=== PATIENT | female | born 1975 | race Caucasian/White ===

== ENCOUNTER 2017-04-14 16:03 | Emergency (ER) | payer BC ==
--- NOTE | 2017-04-14 16:21 | ED PDOC ---
HPI: Psych/Substance Abuse Time Seen by Provider: 04/14/17 16:11 Chief Complaint (Nursing): Altered Mental Status Chief Complaint (Provider): Bizarre behavior History Per: Patient Additional Complaint(s): Pt BIBA for bizarre behavior. Pt admits to smoking marijuana today. No complaints. Past Medical History Reviewed: Nursing Documentation, Vital Signs Vital Signs: Last Vital Signs Temp 98.0 F 04/14/17 16:05 Pulse 105 H 04/14/17 16:05 Resp 16 04/14/17 16:05 BP 138/86 04/14/17 16:05 Pulse Ox 100 04/14/17 16:05 - Medical History PMH: No Chronic Diseases - Social History Current smoker - smoking cessation education provided: Yes Drugs: Cannabis - Allergies Allergies/Adverse Reactions: Allergies Allergy/AdvReac Type Severity Reaction Status Date / Time No Known Allergies Allergy Verified 04/14/17 16:04 Review of Systems ROS Statement: Except As Marked, All Systems Reviewed And Found Negative Physical Exam - Reviewed Nursing Documentation Reviewed: Yes Vital Signs Reviewed: Yes - Physical Exam Appears: Positive for: Well, No Acute Distress Head Exam: Positive for: ATRAUMATIC, NORMAL INSPECTION Skin: Positive for: Normal Color, Warm, Dry Eye Exam: Positive for: Normal appearance, EOMI, PERRL Cardiovascular/Chest: Positive for: Regular Rate, Rhythm Respiratory: Positive for: Normal Breath Sounds Extremity: Positive for: Normal ROM Neurologic/Psych: Positive for: Alert, 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 Negative for: Motor/Sensory Deficits, Aphasia, Facial Droop - Laboratory Results Result Diagrams: 04/14/17 17:11 04/14/17 17:11 - ECG O2 Sat by Pulse Oximetry: 100 Medical Decision Making Medical Decision Makin yo female with bizarre behavior s/p marijuana use. - labs 23:50 Pt sleeping, arousable to verbal stimuli, AAOX3, admits to smoking marijuana today (not the first time), also smoke cigarettes. Denies posterior WANG, neck stiffness, visual changes. States she take medications for thyroid. Was diagnosed with Lyme disease in 2008, finished course of treatment including antibiotics at that time. Disposition - Disposition Forms: [employer] ([place] Citizen)
[2017-04-14 17:22] LABS: BASO # 0.1 K/uL (0.0-0.2); BASO % 0.7 % (0.0-2.0); EOS # 0.1 K/uL (0.0-0.7); EOS % 0.5 % (0.0-4.0); HEMOGLOBIN 13.2 g/dL (12.0-16.0); LYMPH # 1.4 K/uL (1.0-4.3); LYMPH % 9.5 % (20.0-40.0); MEAN CELL VOLUME 91.8 fl (81.0-99.0); MEAN CORPUSCULAR HEMOGLOBIN 30.5 pg (27.0-31.0); MEAN CORPUSCULAR HGB CONC 33.2 g/dL (33.0-37.0); MEAN PLATELET VOLUME 7.1 fl (7.2-11.7); NEUT # 11.8 K/uL (1.8-7.0); NEUT % 82.3 % (50.0-75.0); PLATELET COUNT 332 K/uL (130-400); RBC 4.34 Mil/uL (3.80-5.20); RED CELL DISTRIBUTION WIDTH 12.9 % (11.5-14.5); WHITE BLOOD COUNT 14.3 K/uL (4.8-10.8)
[2017-04-14 17:26] LABS: ACETAMINOPHEN < 10.0 ug/ml (10.0-30.0); SALICYLATE < 1.0 mg/dl
[2017-04-14 17:29] LABS: ALB/GLOB RATIO 1.4 (1.0-2.1); ALBUMIN 4.1 g/dL (3.5-5.0); ALT/SGPT 77 U/L (9-52); AST/SGOT 66 U/L (14-36); BLOOD UREA NITROGEN 10 mg/dl (7-17); GFR AFRICAN-AMERICAN > 60; GFR NON-AFRICAN AMERICAN > 60
[2017-04-14 19:52] LABS: BANDS 3 % (0-2); BASOPHIL 1 % (0-2); EOSINOPHIL 1 % (0-7); LYMPHOCYTE 10 % (20-50); MONOCYTE 8 % (0-10); NEUTROPHIL 77 % (42-75); PLATELET ESTIMATE NORMAL (NORMAL); TOTAL CELLS COUNTED 100
[2017-04-14 19:53] LABS: LARGE PLATELETS PRESENT
--- NOTE | 2017-04-15 00:21 | ED PDOC ---
- Laboratory Results Result Diagrams: 04/15/17 02:02 04/14/17 17:11 - ECG O2 Sat by Pulse Oximetry: 100 (RA) Pulse Ox Interpretation: Normal Medical Decision Making Medical Decision Making: Time: 00:00 Patient was endorsed to me by Dr. Lauren David at this time, pending medical clearance. Time: 00:16 Chest X-Ray: FINDINGS: Lungs: Unremarkable. No consolidation. Pleural space: Unremarkable. No pneumothorax. Heart: Unremarkable. No cardiomegaly. Mediastinum: Unremarkable. Bones/joints: Unremarkable. IMPRESSION: Normal chest x-ray. Time: 02:40 CT Head FINDINGS: Brain: Unremarkable. No hemorrhage. No significant white matter disease. No edema. Ventricles: Unremarkable. No ventriculomegaly. Bones/joints: Unremarkable. No acute fracture. Soft tissues: There is a likely sebaceous cyst of the high right parietal scalp. Sinuses: Unremarkable as visualized. No acute sinusitis. Mastoid air cells: Unremarkable as visualized. No mastoid effusion. IMPRESSION: No acute intracranial pathology. Second CBC shows down-trending WBC count. Head CT and CXR are negative. Toxicology positive for cannabinoids. Patient is medically cleared for psychiatric admission. 0700 Patient signed out to Dr. Casas pending [facility] evaluation. Scribe Attestation: Documented by Mee Walters, acting as a scribe for Sebas Maher MD Provider Scribe Attestation: All medical record entries made by the Scribe were at my direction and personally dictated by me. I have reviewed the chart and agree that the record accurately reflects my personal performance of the history, physical exam, medical decision making, and the department course for this patient. I have also personally directed, reviewed, and agree with the discharge instructions and disposition. Disposition - Clinical Impression Clinical Impression: Psychosis - POA Present On Arrival: None - Disposition Disposition: Transfer of Care Disposition Time: 07:00 Condition: STABLE Forms: [facility] (Slovak) Patient Signed Over To: Deni Casas Handoff Comments: pending eval by [facility]
[2017-04-15 00:41] LABS: BARBITURATES, UR NEGATIVE (NEGATIVE); BENZODIAZEPINES, UR NEGATIVE (NEGATIVE); OPIATES, UR NEGATIVE (NEGATIVE); PHENCYCLIDINE, UR NEGATIVE (NEGATIVE)
[2017-04-15] MEDS: Sodium Chloride 0.9% 1,000 ML IV STA (00:55)
[2017-04-15] MEDS: Potassium Chloride 20 mEq ER Tab PO STA (00:57)
[2017-04-15] MEDS ORDERED: Potassium Chloride 20 mEq ER Tab PO ONE (00:57)
[2017-04-15 02:19] LABS: BASO % 0.2 % (0.0-2.0); EOS % 0.2 % (0.0-4.0); HEMOGLOBIN 12.6 g/dL (12.0-16.0); LYMPH # 1.1 K/uL (1.0-4.3); LYMPH % 8.4 % (20.0-40.0); MEAN CELL VOLUME 91.6 fl (81.0-99.0); MEAN CORPUSCULAR HEMOGLOBIN 30.3 pg (27.0-31.0); MEAN CORPUSCULAR HGB CONC 33.1 g/dL (33.0-37.0); MONO # 1.1 K/uL (0.0-0.8); MONO % 8.6 % (0.0-10.0); NEUT # 10.4 K/uL (1.8-7.0); NEUT % 82.6 % (50.0-75.0); RBC 4.16 Mil/uL (3.80-5.20); RED CELL DISTRIBUTION WIDTH 12.8 % (11.5-14.5); WHITE BLOOD COUNT 12.6 K/uL (4.8-10.8)
[2017-04-15 03:28] LABS: SQUAMOUS EPITHIAL 1 /hpf (0-5); URINE BACTERIA OCC (<OCC); URINE BILIRUBIN NEGATIVE (NEGATIVE); URINE BLOOD SMALL (NEGATIVE); URINE CLARITY SLIGHTY-CLOUDY (Clear); URINE COLOR STRAW (YELLOW); URINE GLUCOSE (UA) NEG (Normal); URINE LEUKOCYTE ESTERASE NEG Leu/uL (Negative); URINE NITRATE NEGATIVE (NEGATIVE); URINE PROTEIN NEGATIVE (NEGATIVE); URINE UROBILINOGEN 0.2-1.0 mg/dL (0.2-1.0)
[2017-04-15 06:49] VITALS: BP 101/55; PULSE 90; RESP 18; TEMP 98.4; O2SAT 99
--- NOTE | 2017-04-15 08:52 | CT ---
PROCEDURE: CT HEAD WITHOUT CONTRAST. HISTORY: Bizarre behavior COMPARISON: None available. TECHNIQUE: Axial computed tomography images were obtained through the head/brain without intravenous contrast. Radiation dose: Total exam DLP = 1133 mGy-cm. This CT exam was performed using one or more of the following dose reduction techniques: Automated exposure control, adjustment of the mA and/or kV according to patient size, and/or use of iterative reconstruction technique. FINDINGS: HEMORRHAGE: No intracranial hemorrhage. BRAIN: No mass effect or edema. No atrophy or chronic microvascular ischemic changes. VENTRICLES: Unremarkable. No hydrocephalus. CALVARIUM: Unremarkable. PARANASAL SINUSES: Unremarkable as visualized. No significant inflammatory changes. MASTOID AIR CELLS: Unremarkable as visualized. No inflammatory changes. OTHER FINDINGS: Leftward nasal septal spurring and high right parietal scalp benign-appearing 12 mm lesion -compatible with a sebaceous cyst subjacent calvarium intact IMPRESSION: No intracranial hemorrhage or mass effect Other incidental findings as above Comments: Preliminary report per Vrad compatible with this report.
--- NOTE | 2017-04-15 13:40 | RAD ---
HISTORY: Medical clearance COMPARISON: PE FINDINGS: LUNGS: No active pulmonary disease. PLEURA: No significant pleural effusion identified, no pneumothorax apparent. CARDIOVASCULAR: No radiographic findings to suggest acute or significant cardiovascular disease. OSSEOUS STRUCTURES: No significant abnormalities. VISUALIZED UPPER ABDOMEN: Normal. OTHER FINDINGS: None. IMPRESSION: No active disease.
--- NOTE | 2017-04-16 09:43 | CARD ---
APPROVED REPORT EKG Measurement Heart [id number] RI [id number] <Conclusion> Normal sinus rhythm Biatrial enlargement ST & T wave abnormality, consider anterior ischemia Abnormal ECG
== END 2017-04-15 07:30 | disposition home or self-care (01) ==
LOC: H.ER 16:03
DX: R41.82 Altered mental status, unspecified (principal); F12.90 Cannabis use, unspecified, uncomplicated; F29 Unspecified psychosis not due to a substance or known physiological condition; I51.7 Cardiomegaly
CPT/HCPCS: 70450; 71045; 80053; 81003; 81025; 84443; 84703; 85025; 87804; 93005; 96372; 99285; G0480; J1630; J2060; J7040

== ENCOUNTER 2017-04-16 16:33 | Emergency (ER) | payer BC ==
[2017-04-16 17:59] VITALS: RESP 16
--- NOTE | 2017-04-16 20:29 | ED PDOC ---
HPI: Psych/Substance Abuse Time Seen by Provider: 04/16/17 18:44 Chief Complaint (Nursing): Altered Mental Status Chief Complaint (Provider): Altered Mental Status History Per: Family (mother) History/Exam Limitations: no limitations Onset/Duration Of Symptoms: Days (x6) Additional History Per: Patient, Prior Records Additional Complaint(s): Margie Grijalva is a 41 y/o female brought to the ER for psychiatric evaluation. On Thursday04/10/17, patients mother noticed patient was acting bizarre and was answering questions inappropriately at times, but she did not think much of it. Thursday04/14/17, mother was called by patients neighbors as patient was acting bizarre and had to be stopped from running down the street. Patient was seen in ED and eventually discharged after negative workup including blood work, CT, and crisis evaluation. 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 Per mother, patient has no previous psychiatric illness. Patient admits to smoking marijuana. Currently patient is complaining right hip pain but is uncertain as to how it started. Patient states she does not remember any of the events described, and states she does not want to be here. PMD: Provider [facility] Past Medical History Reviewed: Historical Data, Nursing Documentation, Vital Signs Vital Signs: Last Vital Signs Temp 97.0 F L 04/16/17 17:59 Pulse 85 04/16/17 17:59 Resp 16 04/16/17 17:59 BP 129/69 04/16/17 17:59 Pulse Ox 100 04/16/17 17:59 - Medical History PMH: Anxiety, Bipolar Disorder Denies: Diabetes, Hepatitis, HIV, HTN, Seizures, Sexually Transmitted Disease - Family History Family History: States: Unknown Family Hx - Social History Drugs: Cannabis - Allergies Allergies/Adverse Reactions: Allergies Allergy/AdvReac Type Severity Reaction Status Date / Time No Known Allergies Allergy Verified 04/14/17 16:04 Review of Systems ROS Statement: Except As Marked, All Systems Reviewed And Found Negative Musculoskeletal: Positive for: Other (right hip pain) Psych: Positive for: Other (bizarre behavior) Physical Exam - Reviewed Nursing Documentation Reviewed: Yes Vital Signs Reviewed: Yes - Physical Exam Appears: Positive for: Non-toxic, No Acute Distress Head Exam: Positive for: ATRAUMATIC, NORMOCEPHALIC Skin: Positive for: Normal Color, Warm, Dry Eye Exam: Positive for: EOMI, Normal appearance, PERRL Neck: Positive for: Normal, Painless ROM Cardiovascular/Chest: Positive for: Regular Rate, Rhythm. Negative for: Murmur Respiratory: Positive for: Normal Breath Sounds. Negative for: Accessory Muscle Use, Respiratory Distress Gastrointestinal/Abdominal: Positive for: Normal Exam, Soft. Negative for: Tenderness Extremity: Positive for: Normal ROM. Negative for: Pedal Edema, Deformity Neurologic/Psych: Positive for: Alert, Oriented, Mood/Affect (Answers questions appropriately but seems preoccupied, and had 1 episode of talking to herself during the examination) - Laboratory Results Result Diagrams: 04/16/17 20:41 04/16/17 20:41 - ECG ECG: Positive for: Interpreted By Me ECG Rhythm: Positive for: Sinus Rhythm. Negative for: ST/T Changes Rate: 77 O2 Sat by Pulse Oximetry: 100 (RA) Pulse Ox Interpretation: Normal - Radiology X-Ray: Interpreted by Me (CXR, R hip x-ray) X-Ray Interpretation: No Acute Disease - Progress ED Course And Treament: Pt. evaluated by Eyad carbajal, who spoke with Dr. Forte and requests that pt. be screened. 2320 Pt. requesting anxiety meds as she is feeling very anxious. Ativan 2mg IM ordered. Medical Decision Making Medical Decision Making: Time: 19:33 Initial Plan: --Alcohol serum --Urine drug screen --CMP --CBC w/ differential --Urine test --Urinalysis --EKG --Chest X-Ray --X-Ray Right Hip --Placed on 1:1 observation --Pending crisis evaluation Scribe Attestation: Documented by Mee Walters, acting as a scribe for Obed Smith PA-C Provider Scribe Attestation: All medical record entries made by the Scribe were at my direction and personally dictated by me. I have reviewed the chart and agree that the record accurately reflects my personal performance of the history, physical exam, medical decision making, and the department course for this patient. I have also personally directed, reviewed, and agree with the discharge instructions and disposition. Disposition - Clinical Impression Clinical Impression: Psychotic episode - Patient ED Disposition Is Patient to be Admitted: Transfer of Care (Signed out to Viktor FOURNIER pending [facility] screen) - Disposition Disposition: Routine/Home Disposition Time: 00:00 Condition: STABLE Forms: [employer] [facility] (Azeri)
[2017-04-16 20:53] LABS: BASO # 0.1 K/uL (0.0-0.2); BASO % 0.5 % (0.0-2.0); EOS # 0.1 K/uL (0.0-0.7); EOS % 1.1 % (0.0-4.0); HEMOGLOBIN 12.9 g/dL (12.0-16.0); LYMPH # 2.4 K/uL (1.0-4.3); LYMPH % 19.7 % (20.0-40.0); MEAN CELL VOLUME 92.2 fl (81.0-99.0); MEAN CORPUSCULAR HEMOGLOBIN 30.4 pg (27.0-31.0); MONO # 1.1 K/uL (0.0-0.8); MONO % 8.8 % (0.0-10.0); NEUT # 8.5 K/uL (1.8-7.0); NEUT % 69.9 % (50.0-75.0); RBC 4.24 Mil/uL (3.80-5.20); RED CELL DISTRIBUTION WIDTH 12.9 % (11.5-14.5); WHITE BLOOD COUNT 12.1 K/uL (4.8-10.8)
[2017-04-16 21:13] LABS: URINE BILIRUBIN NEGATIVE (NEGATIVE); URINE BLOOD NEGATIVE (NEGATIVE); URINE CLARITY CLEAR (Clear); URINE COLOR COLORLESS (YELLOW); URINE GLUCOSE (UA) NEG (Normal); URINE LEUKOCYTE ESTERASE NEG Leu/uL (Negative); URINE NITRATE NEGATIVE (NEGATIVE); URINE PROTEIN NEGATIVE (NEGATIVE); URINE UROBILINOGEN 0.2-1.0 mg/dL (0.2-1.0)
[2017-04-16 21:23] LABS: BARBITURATES, UR NEGATIVE (NEGATIVE); BENZODIAZEPINES, UR NEGATIVE (NEGATIVE); OPIATES, UR NEGATIVE (NEGATIVE); PHENCYCLIDINE, UR NEGATIVE (NEGATIVE)
[2017-04-16 21:24] LABS: ALB/GLOB RATIO 1.6 (1.0-2.1); ALBUMIN 3.9 g/dL (3.5-5.0); ALT/SGPT 96 U/L (9-52); AST/SGOT 60 U/L (14-36); BLOOD UREA NITROGEN 8 mg/dl (7-17); GFR AFRICAN-AMERICAN > 60; GFR NON-AFRICAN AMERICAN > 60
--- NOTE | 2017-04-17 02:45 | ED PDOC ---
- Laboratory Results Result Diagrams: 04/16/17 20:41 04/16/17 20:41 - ECG O2 Sat by Pulse Oximetry: 100 (RA) - Progress ED Course And Treament: pending [facility] Disposition - Clinical Impression Clinical Impression: Psychotic episode - POA Present On Arrival: None - Disposition Disposition: Transfer of Care Disposition Time: 06:03 Condition: STABLE Forms: [facility] (Spanish) Patient Signed Over To: Sebas Maher Handoff Comments: PENDING [facility] EVAL
--- NOTE | 2017-04-17 06:06 | ED PDOC ---
- Laboratory Results Result Diagrams: 04/16/17 20:41 04/16/17 20:41 - ECG O2 Sat by Pulse Oximetry: 100 (RA) Pulse Ox Interpretation: Normal Medical Decision Making Medical Decision Making: Time: 6:00 --Patient signed out to me by Analilia Hoang PA-C pending [facility] screening. Scribe Attestation: Documented by Riley Leong, acting as a scribe for Dr. Sebas Maher MD Provider Scribe Attestation: All medical record entries made by the Scribe were at my direction and personally dictated by me. I have reviewed the chart and agree that the record accurately reflects my personal performance of the history, physical exam, medical decision making, and the department course for this patient. I have also personally directed, reviewed, and agree with the discharge instructions and disposition. Disposition - Clinical Impression Clinical Impression: Psychotic episode - Disposition Condition: STABLE Forms: [employer] (Norwegian)
--- NOTE | 2017-04-17 07:28 | ED PDOC ---
- Laboratory Results Result Diagrams: 04/16/17 20:41 04/16/17 20:41 - ECG O2 Sat by Pulse Oximetry: 100 (RA) Pulse Ox Interpretation: Normal Medical Decision Making Medical Decision Making: Receiving sign out: Patient signed out to me by Dr. Maher at 0720 pending [facility] screen. Parents are at bedside as well. [facility] screen for involuntary commitment completed and patient does not meet criteria for involuntary commitment Pt discharged with parents, encouraged to avoid THC. Scribe Attestation: Documented by Elizabeth Haider acting as a scribe for Eduardo Kothari DO. Provider Attestation: All medical record entries made by the Scribe were at my direction and personally dictated by me. I have reviewed the chart and agree that the record accurately reflects my personal performance of the history, physical exam, medical decision making, and the department course for this patient. I have also personally directed, reviewed, and agree with the discharge instructions and disposition. Disposition Counseled Patient/Family Regarding: Studies Performed, Diagnosis, Need For Followup, Rx Given - Clinical Impression Clinical Impression: Psychotic episode, Cannabis abuse - POA Present On Arrival: None - Disposition Referrals: [facility] [Outside] Disposition: Routine/Home Disposition Time: 12:55 Condition: STABLE Additional Instructions: Return to ER for any concern for self. Avoid drugs and alcohol. Instructions: Brief Psychotic Disorder (ED), Cannabis Abuse (ED) Forms: [employer] [facility] (Filipino) Progress Note - Review of Symptoms Events since last encounter: Time: 1250 Patient seen and evaluated by [facility] screener and patient does not meet criteria for admission. Per Dr. Charlton, patient stable for discharge home and is to follow up at mental health clinic.
[2017-04-17 08:07] VITALS: BP 110/72; PULSE 69; TEMP 98.3
--- NOTE | 2017-04-17 10:54 | RAD ---
PROCEDURE: CHEST RADIOGRAPH, 1 VIEW HISTORY: trauma COMPARISON: Comparison chest dated 04/14/2017 FINDINGS: LUNGS: Clear. PLEURA: No pneumothorax or pleural fluid seen. CARDIOVASCULAR: Normal. OSSEOUS STRUCTURES: No significant abnormalities. VISUALIZED UPPER ABDOMEN: Normal. OTHER FINDINGS: None. IMPRESSION: No active disease.
--- NOTE | 2017-04-17 11:19 | CARD ---
APPROVED REPORT EKG Measurement Heart [id number] IA [id number] <Conclusion> Normal sinus rhythm Possible Left atrial enlargement Borderline ECG
--- NOTE | 2017-04-17 11:46 | CP.PCM.CON ---
Past Patient History - Past Social History Drugs: Cannabis - CARDIAC Hx Hypertension: No - PULMONARY Hx Tuberculosis: No - NEUROLOGICAL Hx Seizures: No - HEMATOLOGICAL/ONCOLOGICAL Hx Human Immunodeficiency Virus (HIV): No - GENITOURINARY/GYNECOLOGICAL Hx Sexually Transmitted Disorders: No - PSYCHIATRIC Hx Anxiety: Yes Hx Bipolar Disorder: Yes Meds Allergies/Adverse Reactions: Allergies Allergy/AdvReac Type Severity Reaction Status Date / Time No Known Allergies Allergy Verified 04/14/17 16:04 Results - Vital Signs Recent Vital Signs: Last Vital Signs Temp 98.3 F 04/17/17 08:06 Pulse 69 04/17/17 08:06 Resp 16 04/17/17 08:06 BP 110/72 04/17/17 08:06 Pulse Ox 99 04/17/17 08:06 - Labs Result Diagrams: 04/16/17 20:41 04/16/17 20:41 Labs: Laboratory Results - last 24 hr 04/16/17 04/16/17 04/16/17 20:10 20:10 20:41 WBC 12.1 H RBC 4.24 Hgb 12.9 Hct 39.1 MCV 92.2 MCH 30.4 MCHC 33.0 RDW 12.9 Plt Count 337 MPV 7.0 L Neut % (Auto) 69.9 Lymph % (Auto) 19.7 L Navarro % (Auto) 8.8 Eos % (Auto) 1.1 Baso % (Auto) 0.5 Neut # (Auto) 8.5 H Lymph # (Auto) 2.4 Navarro # (Auto) 1.1 H Eos # (Auto) 0.1 Baso # (Auto) 0.1 Sodium Potassium Chloride Carbon Dioxide Anion Gap BUN Creatinine Est GFR ( Amer) Est GFR (Non-Af Amer) Random Glucose Calcium Total Bilirubin AST ALT Alkaline Phosphatase Total Protein Albumin Globulin Albumin/Globulin Ratio Urine Color Colorless Urine Clarity Clear Urine pH 7.0 Ur Specific Itmann < 1.005 Urine Protein Negative Urine Glucose (UA) Neg Urine Ketones Negative Urine Blood Negative Urine Nitrate Negative Urine Bilirubin Negative Urine Urobilinogen 0.2-1.0 Ur Leukocyte Esterase Neg Urine Microscopic WBC < 1 Urine Opiates Screen Negative Urine Methadone Screen Negative Ur Barbiturates Screen Negative Ur Phencyclidine Scrn Negative Ur Amphetamines Screen Negative U Benzodiazepines Scrn Negative U Oth Cocaine Metabols Negative U Cannabinoids Screen Positive H Alcohol, Quantitative 04/16/17 20:41 WBC RBC Hgb Hct MCV MCH MCHC RDW Plt Count MPV Neut % (Auto) Lymph % (Auto) Navarro % (Auto) Eos % (Auto) Baso % (Auto) Neut # (Auto) Lymph # (Auto) Navarro # (Auto) Eos # (Auto) Baso # (Auto) Sodium 142 Potassium 3.6 Chloride 105 Carbon Dioxide 25 Anion Gap 16 BUN 8 Creatinine 0.6 L Est GFR ( Amer) > 60 Est GFR (Non-Af Amer) > 60 Random Glucose 104 Calcium 9.0 Total Bilirubin 0.5 AST 60 H ALT 96 H D Alkaline Phosphatase 51 Total Protein 6.3 Albumin 3.9 Globulin 2.4 Albumin/Globulin Ratio 1.6 Urine Color Urine Clarity Urine pH Ur Specific Itmann Urine Protein Urine Glucose (UA) Urine Ketones Urine Blood Urine Nitrate Urine Bilirubin Urine Urobilinogen Ur Leukocyte Esterase Urine Microscopic WBC Urine Opiates Screen Urine Methadone Screen Ur Barbiturates Screen Ur Phencyclidine Scrn Ur Amphetamines Screen U Benzodiazepines Scrn U Oth Cocaine Metabols U Cannabinoids Screen Alcohol, Quantitative < 10
[2017-04-17 12:55] VITALS: O2SAT 100
--- NOTE | 2017-04-17 14:43 | RAD ---
PROCEDURE: Right Hip Radiographs. HISTORY: Pain. No history of recent/ related trauma provided COMPARISON: None. FINDINGS: BONES: Normal. No fracture. JOINTS: Mild degenerative changes right hip compared to the left. SOFT TISSUES: Normal. OTHER FINDINGS: None. IMPRESSION: No significant or acute findings to account for/ related to the clinical presentation. Concordant results with the preliminary interpretation rendered by the emergency department physician procedure.
== END 2017-04-17 13:08 | disposition home or self-care (01) ==
LOC: H.ER 16:33
DX: F12.10 Cannabis abuse, uncomplicated (principal); F23 Brief psychotic disorder; F31.9 Bipolar disorder, unspecified; F41.9 Anxiety disorder, unspecified
CPT/HCPCS: 71045; 73501; 80053; 81003; 81025; 85025; 93005; 96372; 99285; G0480; J2060